=== PATIENT | female | born 1965 | race Caucasian/White ===

== ENCOUNTER 2020-07-31 12:20 | Emergency (ER) | payer OTHER, SELFPAY ==
[2020-07-31 12:29] VITALS: BP 126/91; PULSE 90; RESP 16; TEMP 37; O2SAT 99
[2020-07-31 12:35] VITALS: BP 126/91; PULSE 90; RESP 16; TEMP 37; O2SAT 99
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
--- NOTE | 2020-07-31 14:07 | PC.NURSE ---
1240 ice bag provided to patient, on exam table with ice to injured area.
== END 2020-07-31 14:00 | disposition home or self-care (01) ==
PROVIDERS: Emergency Provider Nurse Practitioner
DX: S81.811A Laceration without foreign body, right lower leg, initial encounter (principal); V18.4XXA Pedal cycle driver injured in noncollision transport accident in traffic accident, initial encounter
CPT/HCPCS: 12001; 99212; G0463